=== PATIENT | female | born 1965 | race African-American/Black ===

== ENCOUNTER 2017-02-10 16:08 | Inpatient (IN) | payer OTHER ==
[2017-02-10 18:18] VITALS: BMI 37.3
--- NOTE | 2017-02-10 20:17 | HP ---
CIWA Score - CIWA Score Nausea/Vomitin-Mild Nausea/No Vomiting Muscle Tremors: 5 Anxiety: 4-Mod. Anxious/Guarded Agitation: 4-Moderately Restless Paroxysmal Sweats: 3 Orientation: 2-Disoriented Date<2 days Tacttile Disturbances: 2-Mild Itch/Numbness/Burn Auditory Disturbances: 0-None Visual Disturbances: 0-None Headache: 0-None Present CIWA-Ar Total Score: 21 Admission ROS BHS - HPI Chief Complaint: C/O ALCOHOLISM WITH WITHDRAWAL SX'S. SEEKING DETOX TXMENT Allergies/Adverse Reactions: Allergies Allergy/AdvReac Type Severity Reaction Status Date / Time Penicillins Allergy Severe Rash Verified 02/10/17 20:30 History of Present Illness: 51 Y.O. MALE WITH ALCOHOLISM KNOWN TO [facility] ADMITTED FOR DETOX TXMENT. CLIENT LAST HERE 07/14. DENIES RECENT DETOX/REHAB SERVICES. REPORTS LONGEST CLEAN TIME 5 YEARS. SELF REFERRED. Exam Limitations: No Limitations - Ebola screening Have you traveled outside of the country in the last 21 days: No Have you had contact with anyone from an Ebola affected area: No Have you been sick,other than usual withdrawal symptoms: No Do you have a fever: No - Review of Systems Constitutional: Chills, Loss of Appetite, Malaise, Night Sweats, Changes in sleep EENT: reports: Dental Problems (MISSING BOTTOM TEETH), Other (GLASSES) Respiratory: reports: Shortness of Breath, Other (ASTHMA H/O +PPD) Cardiac: reports: No Symptoms Reported GI: reports: Constipated, Abdominal cramping : reports: No Symptoms Reported Musculoskeletal: reports: Back Pain Integumentary: reports: No Symptoms Reported Neuro: reports: No Symptoms reported Endocrine: reports: No Symptoms Reported Hematology: reports: No Symptoms Reported Psychiatric: reports: Anxious Other Systems: Reviewed and Negative Patient History - Patient Medical History Hx Anemia: No Hx Asthma: Yes Hx Chronic Obstructive Pulmonary Disease (COPD): No Hx Cancer: No Hx Cardiac Disorders: No Hx Congestive Heart Failure: No Hx Hypertension: No Hx Hypercholesterolemia: No Hx Pacemaker: No HX Cerebrovascular Accident: No Hx Seizures: No Hx Dementia: No Hx Diabetes: No Hx Gastrointestinal Disorders: No Hx Liver Disease: No Hx Genitourinary Disorders: No Hx Sexually Transmitted Disorders: No Hx Renal Disease (ESRD): No Hx Thyroid Disease: No Hx Human Immunodeficiency Virus (HIV): No Hx Hepatitis C: No Hx Depression: No Hx Suicide Attempt: Yes (2003 cutting wrist) Hx Bipolar Disorder: No Hx Schizophrenia: Yes (Paranoid) Other Medical History: PTSD, H/O +PPD - Patient Surgical History Past Surgical History: No Hx Neurologic Surgery: No Hx Cataract Extraction: No Hx Cardiac Surgery: No Hx Lung Surgery: No Hx Breast Surgery: No Hx Breast Biopsy: No Hx Abdominal Surgery: No Hx Appendectomy: No Hx Cholecystectomy: No Hx Genitourinary Surgery: No Hx Section: No Hx Orthopedic Surgery: No Hx Hysterectomy: No Anesthesia Reaction: No - PPD History Previous Implant?: Yes Documented Results: Negative w/o proof Implanted On Prior [facility] Admission?: No Date: 07/04/16 (CXR 07/14 NEG) Results: >15 MMM PPD to be Administered?: No - Reproductive History Patient is a Female of Child Bearing Age (11 -55 yrs old): Yes Last Menstrual Period: 02/08/17 Patient : No - Smoking Cessation Smoking history: Current every day smoker Have you smoked in the past 12 months: Yes Aproximately how many cigarettes per day: 20 Cigars Per Day: 0 Hx Chewing Tobacco Use: No Initiated information on smoking cessation: Yes 'Breaking Loose' booklet given: 02/10/17 - Substance & Tx. History Hx Alcohol Use: Yes Hx Substance Use: Yes Substance Use Type: Cocaine Hx Substance Use Treatment: Yes ([facility]) - Substances Abused BARCADI Route: Oral Frequency: Daily Amount used: 2 PINTS Age of first use: 21 Date of Last Use: 02/10/17 COCAINE Route: Smoking Frequency: Daily Amount used: $40 Age of first use: 21 Date of Last Use: 02/09/17 Family Disease History - Family Disease History Family Disease History: Other: Father (ALCOHOLISM ), Mother (RECOVERING COCAINE DEPENDNECE) Admission Physical Exam BHS - Vital Signs Vital Signs: Vital Signs - 24 hr 02/10/17 18:15 Temperature 98.4 F Pulse Rate 106 H Respiratory 18 Rate Blood Pressure 147/79 - Physical General Appearance: Yes: Appropriately Dressed, Tremorous, Anxious HEENTM: Yes: EOMI, Normocephalic, Normal Voice, RADHA, Pharynx Normal, Other ( EDENTULOUS BOTTOMS) Respiratory: Yes: Chest Non-Tender, Lungs Clear, Normal Breath Sounds, No Respiratory Distress, No Accessory Muscle Use Neck: Yes: No masses,lesions,Nodules, Supple, Trachea in good position Breast: Yes: Breast Exam Deferred Cardiology: Yes: Regular Rhythm, Regular Rate, S1, S2 Abdominal: Yes: Normal Bowel Sounds, Non Tender, Soft, Other (OBESE) Genitourinary: Yes: Within Normal Limits Back: Yes: Normal Inspection Musculoskeletal: Yes: full range of Motion, Gait Steady Extremities: Yes: Normal Capillary Refill, Normal Range of Motion, Non-Tender, Tremors Neurological: Yes: Alert, Motor Strength 5/5, Other (FORGETFUL) Integumentary: Yes: Normal Color, Warm Lymphatic: Yes: Within Normal Limits - Diagnostic (1) COPD (chronic obstructive pulmonary disease) Current Visit: Yes Status: Chronic Qualifiers: COPD type: unspecified COPD Qualified Code(s): J44.9 - Chronic obstructive pulmonary disease, unspecified (2) Nicotine dependence Current Visit: Yes Status: Chronic Qualifiers: Nicotine product type: cigarettes Substance use status: uncomplicated Qualified Code(s): F17.210 - Nicotine dependence, cigarettes, uncomplicated (3) Alcohol dependence with uncomplicated withdrawal Current Visit: Yes Status: Acute (4) GERD (gastroesophageal reflux disease) Current Visit: No Status: Chronic Qualifiers: Cleared for Admission [facility] - Detox or Rehab [facility] Level of Care: Medically Managed Detox Regimen/Protocol: Librium [facility] Breath Alcohol Content Breath Alcohol Content: 0.161 Urine Pregancy Test - Result Urine Test Results: Negative- NO Line Present Urine Drug Screen - Results Drug Screen Negative: Yes
[2017-02-10] MEDS ORDERED: chlordiazePOXIDE HCL 25 MG CAPSULE PO PRN (20:49)
[2017-02-10] MEDS ORDERED: ACETAMINOPHEN 325 MG TABLET (FP) PO PRN (20:49)
[2017-02-10] MEDS ORDERED: MENTHOL/PHENOL 1 EACH UD MM PRN (20:49)
[2017-02-10] MEDS ORDERED: LOPERAMIDE HCL 2 MG CAPSULE PO PRN (20:49)
[2017-02-10] MEDS ORDERED: MAG HYDROX/AL HYDROX/SIMETH 30 ML UNIT-DOSE CUP PO PRN (20:49)
[2017-02-10] MEDS ORDERED: diphenhydrAMINE HCL 50 MG CAPSULE PO PRN (20:49)
[2017-02-10] MEDS ORDERED: P-EPHED 60MG/TRIPROLIDI 2.5MG TABLET PO PRN (20:49)
[2017-02-10] MEDS ORDERED: hydrOXYzine PAMOATE 50 MG CAPSULE (FP) PO PRN (20:49)
[2017-02-10] MEDS ORDERED: MAGNESIUM CITRATE 300 ML BOTTLE PO PRN (20:49)
[2017-02-10] MEDS ORDERED: guaiFENesin/D-METHORPHAN HB 10 ML UNIT-DOSE CUPS PO PRN (20:49)
[2017-02-10] MEDS ORDERED: IBUPROFEN 400 MG TABLET (FP) PO PRN (20:49)
[2017-02-10] MEDS ORDERED: MAGNESIUM HYDROX 2400MG/30ML ORAL SUSPENSION 30 ML CUP PO PRN (20:49)
[2017-02-10] MEDS ORDERED: ALBUTEROL SO4 6.7 GM HFA INHALER IH PRN (20:52)
[2017-02-10] MEDS: THIAMINE HCL 100 MG TABLET (FP) PO SCH (22:13)
[2017-02-10] MEDS: BUDESONIDE/FORMETEROL FUMARATE 80/4.5 mcg INHALER IH SCH (22:13)
[2017-02-10] MEDS: RANITIDINE HCL 150 MG TABLET (FP) PO SCH (22:14)
[2017-02-10] MEDS: chlordiazePOXIDE HCL 25 MG CAPSULE PO SCH (22:14)
[2017-02-10] MEDS: MONTELUKAST NA 10 MG TABLET PO SCH (22:14)
[2017-02-10] MEDS: NICOTINE 21 MG/24 HOURS TOPICAL PATCH TD SCH (23:24)
[2017-02-11 00:11] LABS: URINE APPEARANCE CLEAR; URINE BILIRUBIN NEGATIVE (NEGATIVE); URINE COLOR LTYELLOW; URINE GLUCOSE (UA) NEGATIVE (NEGATIVE); URINE KETONE NEGATIVE (NEGATIVE); URINE LEUK ESTERASE NEGATIVE (NEGATIVE); URINE NITRITE NEGATIVE (NEGATIVE); URINE PROTEIN NEGATIVE (NEGATIVE); URINE UROBILINOGEN NEGATIVE E.U./dl (0.2-1.0)
[2017-02-11 00:17] LABS: URINE BLOOD 2+ (NEGATIVE)
[2017-02-11 00:44] LABS: URINE MUCUS RARE; URINE RBC <1 /hpf (0-3); URINE WBC 1 /hpf (3-5)
[2017-02-11] MEDS: chlordiazePOXIDE HCL 25 MG CAPSULE PO SCH ×4 (07:35→22:24)
[2017-02-11] MEDS ORDERED: PRENATAL VITAMINS W/ FOLIC ACID TABLET (FP) PO SCH (10:00)
[2017-02-11] MEDS: RANITIDINE HCL 150 MG TABLET (FP) PO SCH ×2 (10:15→22:24)
[2017-02-11] MEDS: BUDESONIDE/FORMETEROL FUMARATE 80/4.5 mcg INHALER IH SCH ×2 (10:15→22:23)
[2017-02-11] MEDS: NICOTINE 21 MG/24 HOURS TOPICAL PATCH TD SCH (10:20)
[2017-02-11 10:26] LABS: MCH 31.1 pg (25.7-33.7); MCHC 34.1 g/dl (32.0-36.0); MEAN CELL VOLUME 91.1 fl (80-96); MEAN PLT VOLUME 8.9 fl (7.5-11.1); PLATELET COUNT 271 K/MM3 (134-434); RDW 14.5 % (11.6-15.6); WHITE BLOOD COUNT 8.4 K/mm3 (4.0-10.0)
--- NOTE | 2017-02-11 10:34 | PN ---
S CIWA - CIWA Score Nausea/Vomitin-No Nausea/No Vomiting Muscle Tremors: 4-Moderate,w/Arms Extend Anxiety: 3 Agitation: 3 Paroxysmal Sweats: 3 Orientation: 0-Oriented Tacttile Disturbances: 0-None Auditory Disturbances: 0-None Visual Disturbances: 0-None Headache: 0-None Present CIWA-Ar Total Score: 13 S Progress Note (SOAP) Subjective: irritable agitation sweats interrupted sleep Objective: 02/11/17 10:33 Vital Signs Temperature 97.3 F L 02/11/17 09:51 Pulse Rate 91 H 02/11/17 09:51 Respiratory Rate 20 02/11/17 09:51 Blood Pressure 127/82 02/11/17 09:51 O2 Sat by Pulse Oximetry (%) Laboratory Tests 02/10/17 02/11/17 00:00 07:00 WBC 8.4 RBC 3.95 Hgb 12.3 Hct 36.0 MCV 91.1 MCHC 34.1 RDW 14.5 Plt Count 271 MPV 8.9 Urine Color Ltyellow Urine Appearance Clear Urine pH 7.0 Urine Protein Negative Urine Glucose (UA) Negative Urine Ketones Negative Urine Blood 2+ H Urine Nitrite Negative Urine Bilirubin Negative Urine Urobilinogen Negative Ur Leukocyte Esterase Negative Urine RBC <1 Urine WBC 1 Ur Epithelial Cells Rare Urine Mucus Rare labs pending awake/alert ambulating no acute distress Assessment: 02/11/17 10:34 withdrawal sx Plan: continue detox increase fluids
[2017-02-11 10:54] LABS: ALBUMIN 3.1 g/dl (3.4-5.0); ANION GAP 9 (8-16); CALCIUM 8.6 mg/dL (8.5-10.1); CO2 25 mmol/L (21-32); GLUCOSE,RANDOM 110 mg/dL (74-106); SGOT/AST 11 U/L (15-37); SGPT/ALT 17 U/L (12-78)
[2017-02-11 11:02] LABS: ALK PHOS 78 U/L (45-117); BILIRUBIN,TOTAL 0.3 mg/dL (0.2-1.0); COCKROFT - GAULT 163.2425; CREATININE 0.8 mg/dL (0.55-1.02); TOT PROT 6.8 g/dl (6.4-8.2)
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
--- NOTE | 2017-02-11 17:20 | EKG ---
Test Reason : Blood Pressure : / mmHG Vent. Rate : 097 BPM Atrial Rate : 097 BPM P-R Int : 154 ms QRS Dur : 068 ms QT Int : 374 ms P-R-T Axes : 074 060 060 degrees QTc Int : 474 ms NORMAL SINUS RHYTHM NORMAL ECG NO PREVIOUS ECGS AVAILABLE Confirmed by ASHA DENTON, CLARENCE ([id number]) on 02/11/2017 5:20:28 PM Referred By: Juwan Mcknight Confirmed By:CLARENCE BARRY MD
[2017-02-11] MEDS ORDERED: QUEtiapine FUMARATE 400 MG TABLET PO SCH (22:00)
[2017-02-11] MEDS: THIAMINE HCL 100 MG TABLET (FP) PO SCH (22:24)
[2017-02-11] MEDS: MONTELUKAST NA 10 MG TABLET PO SCH (22:24)
[2017-02-12] MEDS: chlordiazePOXIDE HCL 25 MG CAPSULE PO SCH (05:56)
[2017-02-12 06:22] VITALS: BP 122/69; PULSE 100; TEMP 97
--- NOTE | 2017-02-12 09:12 | DS ---
[facility] Detox Discharge Summary Admission Date: 02/10/17 Discharge Date: 02/12/17 - History Present History: Alcohol Dependence, Cocaine Dependence - Physical Exam Results Vital Signs: Vital Signs Temperature 97 F L 02/12/17 06:22 Pulse Rate 100 H 02/12/17 06:22 Respiratory Rate 18 02/12/17 06:22 Blood Pressure 122/69 02/12/17 06:22 O2 Sat by Pulse Oximetry (%) - Treatment Hospital Course: Detox Protocol Followed - Medication Discharge Medications: Ambulatory Orders Citalopram Hydrobromide [Celexa -] 20 mg PO DAILY #30 tablet 07/05/16 Quetiapine Fumarate [Seroquel] 100 tab PO HS #30 tablet 07/05/16 Methyl Salicylate/Menthol Oint [Analgesic [place] -] 1 applic TP BID 07/06/16 Albuterol Sulfate Inhaler - [Ventolin HFA Inhaler -] 2 inh IH Q4H PRN #60 inhaler 07/16/16 Budesonide/Formeterol Fumarate [SYMBICORT 80/4.5mcg -] 2 puff IH BID #1 inhaler 07/16/16 Montelukast Na [Singulair -] 10 mg PO HS #30 tablet 07/16/16 Ranitidine [Zantac -] 150 mg PO BID #60 tablet 07/16/16 Trazodone HCl [Desyrel -] 100 mg PO HS #30 tablet 07/16/16 Citalopram Hydrobromide [Celexa -] 10 mg PO DAILY #30 tablet 02/11/17 Quetiapine Fumarate [Seroquel -] 400 mg PO HS #30 tab 02/11/17 - Diagnosis (1) Alcohol dependence with uncomplicated withdrawal Current Visit: Yes Status: Chronic (2) PPD positive Current Visit: Yes Status: Chronic (3) Paranoid schizophrenia Current Visit: Yes Status: Chronic (4) COPD (chronic obstructive pulmonary disease) Current Visit: Yes Status: Chronic Qualifiers: COPD type: unspecified COPD Qualified Code(s): J44.9 - Chronic obstructive pulmonary disease, unspecified (5) Asthma Current Visit: Yes Status: Chronic Qualifiers: Asthma severity: mild intermittent Qualified Code(s): - (6) Bipolar II disorder Current Visit: Yes Status: Chronic (7) Cocaine dependence Current Visit: Yes Status: Chronic Qualifiers: Substance use status: uncomplicated (8) Dust allergy Current Visit: No Status: Chronic (9) GERD (gastroesophageal reflux disease) Current Visit: No Status: Chronic Qualifiers: - AMA Did Patient Leave Against Medical Advice: Yes (wants to leave. going to another facility. )
[2017-02-12] MEDS ORDERED: CITALOPRAM HYDROBROMIDE 10 MG TABLET (FP) PO SCH (10:00)
[2017-02-12] MEDS ORDERED: chlordiazePOXIDE 5 MG CAPSULE PO SCH (23:00)
[2017-02-13] MEDS ORDERED: chlordiazePOXIDE HCL 10 MG CAPSULE PO SCH (23:00)
== END 2017-02-12 09:28 | disposition left against medical advice (07) | DRG 770 ==
LOC: YASAS 16:08 → Y6N 20:23
PROVIDERS: ADMIT Internal Medicine Addiction Medicine; ATTEND Internal Medicine Addiction Medicine
PROC: HZ2ZZZZ Detoxification Services for Substance Abuse Treatment (ICD-10-PCS; principal; 2017-02-12)
DX: F10.230 Alcohol dependence with withdrawal, uncomplicated (principal); F14.20 Cocaine dependence, uncomplicated; F17.210 Nicotine dependence, cigarettes, uncomplicated; F31.81 Bipolar II disorder; F25.9 Schizoaffective disorder, unspecified; F43.10 Post-traumatic stress disorder, unspecified; J44.9 Chronic obstructive pulmonary disease, unspecified; J45.20 Mild intermittent asthma, uncomplicated; K21.9 Gastro-esophageal reflux disease without esophagitis; J30.89 Other allergic rhinitis; R76.11 Nonspecific reaction to tuberculin skin test without active tuberculosis
CPT/HCPCS: 36415; 80053; 81003; 81015; 85027; 86593; 93005; 93010

== ENCOUNTER 2019-01-01 11:08 | Inpatient (IN) | payer OTHER ==
[2019-01-01 12:48] VITALS: BMI 41.0
--- NOTE | 2019-01-01 13:14 | HP ---
CIWA Score Nausea/Vomitin-Mild Nausea/No Vomiting Muscle Tremors: None Anxiety: 2 Agitation: 0-Normal Activity Paroxysmal Sweats: No Perspiration Orientation: 0-Oriented Tacttile Disturbances: 0-None Auditory Disturbances: 0-None Visual Disturbances: 0-None Headache: 0-None Present CIWA-Ar Total Score: 3 - Admission Criteria OASAS Guidelines: Admission for Medically Managed Detox: Requires at least one of the followin. CIWA greater than 12 2. Seizures within the past 24 hours 3. Delirium tremens within the past 24 hours 4. Hallucinations within the past 24 hours 5. Acute intervention needed for co occurring medical disorder 6. Acute intervention needed for co occurring psychiatric disorder 7. Severe withdrawal that cannot be handled at a lower level of care (continued vomiting, continued diarrhea, abnormal vital signs) requiring intravenous medication and/or fluids 8. Admission ROS S - HPI Allergies/Adverse Reactions: Allergies Allergy/AdvReac Type Severity Reaction Status Date / Time Penicillins Allergy Severe Rash Verified 01/01/19 12:38 History of Present Illness: pt her erequesting detox from etoh use , reports use x 2 weeks heavily 2 quarts /day , prior sobriety x 1 year , first age of use 21 , latest use Friday night 12/27/18 , current symptoms as above. latest hospitalization - last 2 days at [facility] for asthma exacerbation , d/c today cocaine : 200 $/day 2 x/day denies IVDU , reports cocaine since age 21 , latest use yesterday denies other illicits tobacco : 1/2 ppd PMHX : asthma ( hospitalized , [place] ) , MACK , gerd PShx : c-sx x 1 psych : ptsd , depression , paranoid sad , anxiety denies SA , current / Hi meds : celexa, trazodone, symbicort , albuterol Exam Limitations: No Limitations - Ebola screening Have you traveled outside of the country in the last 21 days: No Have you had contact with anyone from an Ebola affected area: No - Review of Systems Constitutional: No Symptoms Reported (glasses myopia , awaiting dentures) EENT: reports: No Symptoms Reported Respiratory: reports: Cough, Shortness of Breath, Other (pt d/c from hospital reportedly after overnight stay and IV meds .) Cardiac: reports: No Symptoms Reported GI: reports: No Symptoms Reported : reports: No Symptoms Reported Musculoskeletal: reports: Muscle Pain Integumentary: reports: No Symptoms Reported Neuro: reports: No Symptoms reported Endocrine: reports: No Symptoms Reported Psychiatric: reports: Orientated x3 Patient History - Patient Medical History Hx Anemia: No Hx Asthma: Yes Hx Chronic Obstructive Pulmonary Disease (COPD): No Hx Cancer: No Hx Cardiac Disorders: No Hx Congestive Heart Failure: No Hx Hypertension: No Hx Hypercholesterolemia: No Hx Pacemaker: No HX Cerebrovascular Accident: No Hx Seizures: No Hx Dementia: No Hx Diabetes: No Hx Gastrointestinal Disorders: No Hx Liver Disease: No Hx Genitourinary Disorders: No Hx Sexually Transmitted Disorders: No Hx Renal Disease (ESRD): No Hx Thyroid Disease: No Hx Human Immunodeficiency Virus (HIV): No Hx Hepatitis C: No Hx Depression: No Hx Suicide Attempt: Yes (2003 cutting wrist) Hx Bipolar Disorder: No Hx Schizophrenia: Yes (Paranoid) - Patient Surgical History Past Surgical History: No Hx Neurologic Surgery: No Hx Cataract Extraction: No Hx Cardiac Surgery: No Hx Lung Surgery: No Hx Breast Surgery: No Hx Breast Biopsy: No Hx Abdominal Surgery: No Hx Appendectomy: No Hx Cholecystectomy: No Hx Genitourinary Surgery: No Hx Section: No Hx Orthopedic Surgery: No Hx Hysterectomy: No Anesthesia Reaction: No - PPD History Date: 07/04/16 Results: >15 MMM - Reproductive History Last Menstrual Period: 02/08/17 - Smoking Cessation Smoking history: Current every day smoker Have you smoked in the past 12 months: Yes Aproximately how many cigarettes per day: 20 Cigars Per Day: 0 Hx Chewing Tobacco Use: No Initiated information on smoking cessation: No - Substances abused Alcohol Substance route: Oral Frequency: Daily Amount used: 2 /FIFTH VODKA Age of first use: 21 Date of last use: 12/28/18 Cocaine Substance route: Smoking Frequency: 3-6 times per week Amount used: $400 Age of first use: Date of last use: 12/31/18 Family Disease History - Family Disease History Family Disease History: Other: Father (ALCOHOLISM ), Mother (RECOVERING COCAINE DEPENDNECE) Admission Physical Exam BHS - Vital Signs Vital Signs: Vital Signs - 24 hr 01/01/19 01/01/19 12:38 12:56 Temperature 98 F 98.0 F Pulse Rate 115 H 115 H Respiratory 22 H 22 H Rate Blood Pressure 165/100 165/100 - Physical General Appearance: Yes: Mild Distress HEENTM: Yes: EOMI, Hearing grossly Normal, Normocephalic, Normal Voice Respiratory: Yes: Chest Non-Tender, Decreased Breath Sounds, Rapid RR, Wheezing Neck: Yes: No masses,lesions,Nodules, Trachea in good position Cardiology: Yes: Regular Rhythm, Regular Rate, S1, S2, Tachycardia Abdominal: Yes: Soft, Protuberent Back: Yes: Normal Inspection Musculoskeletal: Yes: full range of Motion Extremities: Yes: Normal Range of Motion, Non-Tender Neurological: Yes: Fully Oriented, Alert, Motor Strength 5/5 - Diagnostic (1) Alcohol dependence Current Visit: Yes Status: Acute Qualifiers: Substance use status: in remission Qualified Code(s): F10.21 - Alcohol dependence, in remission (2) Cocaine dependence Current Visit: Yes Status: Acute Qualifiers: Substance use status: uncomplicated Qualified Code(s): F14.20 - Cocaine dependence, uncomplicated (3) Nicotine dependence Current Visit: Yes Status: Chronic Qualifiers: Nicotine product type: cigarettes Substance use status: uncomplicated Qualified Code(s): F17.210 - Nicotine dependence, cigarettes, uncomplicated Breathalyzer - Breathalyzer Breathalyzer: 0 POC Urine test - Test device test lot number: [id number] Expiration date: 05/29/20 - Control test control: Yes - Result Urine Test Results: Negative - NO line present Urine Drug Screen - Test Device Lot number: [id number] Expiration date: 08/28/20 - Control Is test valid?: Yes - Results Drug screen NEGATIVE: No Urine drug screen results: BRODERICK-Cocaine, BZO-Benzodiazepines Inpatient Rehab Admission - Rehab Decision to Admit Inpatient rehab admission?: Yes - Initial Determination Are CD services needed?: Yes Free of communicable disease: Yes Not in need of hospitalization: Yes - Rehab Admission Criteria Previous failed treatment: No Poor recovery environment: No Comorbidities: No Lacks judgement: Yes Patient is meeting Inpatient Rehab admission criteria:: Yes
[2019-01-01] MEDS ORDERED: P-EPHED 60MG/TRIPROLIDI 2.5MG TABLET PO PRN (13:54)
[2019-01-01] MEDS ORDERED: MAGNESIUM HYDROX 2400MG/30ML ORAL SUSPENSION 30 ML CUP PO PRN (13:54)
[2019-01-01] MEDS ORDERED: ACETAMINOPHEN 325 MG TABLET (FP) PO PRN (13:54)
[2019-01-01] MEDS ORDERED: MENTHOL/PHENOL 1 EACH UD MM PRN (13:54)
[2019-01-01] MEDS ORDERED: NICOTINE POLACRILEX 2 MG GUM BC PRN (13:54)
[2019-01-01] MEDS ORDERED: MAGNESIUM CITRATE 300 ML BOTTLE PO PRN (13:54)
[2019-01-01] MEDS ORDERED: guaiFENesin 200 MG/10 ML 10 ML UNIT-DOSE CUPS PO PRN (13:54)
[2019-01-01] MEDS ORDERED: IBUPROFEN 400 MG TABLET (FP) PO PRN (13:54)
[2019-01-01] MEDS ORDERED: ALBUTEROL SO4 0.083% IH SOL 2.5 MG/3 ML VIAL.NEB. NEB PRN (13:55)
[2019-01-01] MEDS ORDERED: ALBUTEROL SO4 8 GM HFA INHALER IH PRN (13:55)
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
[2019-01-01 16:57] LABS: HEMOGLOBIN 12.4 GM/dL (10.7-15.3); MCH 30.5 pg (25.7-33.7); MCHC 33.5 g/dl (32.0-36.0); MEAN PLT VOLUME 9.5 fl (7.5-11.1); PLATELET COUNT 321 K/MM3 (134-434); RBC 4.07 M/mm3 (3.60-5.2); RDW 14.7 % (11.6-15.6); WHITE BLOOD COUNT 12.4 K/mm3 (4.0-10.0)
[2019-01-01 17:05] LABS: ALBUMIN 3.5 g/dl (3.4-5.0); ALK PHOS 90 U/L (45-117); ANION GAP 4 MMOL/L (8-16); BILIRUBIN,TOTAL 0.4 mg/dL (0.2-1); BLOOD UREA NITROGEN 11 mg/dL (7-18); CALCIUM 9.8 mg/dL (8.5-10.1); CHLORIDE 107 mmol/L (98-107); CO2 27 mmol/L (21-32); GLUCOSE,RANDOM 139 mg/dL (74-106); POTASSIUM 4.8 mmol/L (3.5-5.1); SGOT/AST 14 U/L (15-37); SGPT/ALT 22 U/L (13-61); SODIUM 138 mmol/L (136-145); TOT PROT 8.1 g/dl (6.4-8.2)
[2019-01-01] MEDS ORDERED: hydrOXYzine PAMOATE 50 MG CAPSULE (FP) PO PRN (18:18)
[2019-01-01] MEDS ORDERED: TUBERCULIN PPD 5 TU/0.1ML VIAL ID ONE (19:50)
[2019-01-01] MEDS: BUDESONIDE/FORMETEROL FUMARATE 80/4.5 mcg INHALER IH SCH (21:03)
[2019-01-01] MEDS: THIAMINE HCL 100 MG TABLET (FP) PO SCH (21:03)
[2019-01-01] MEDS: MONTELUKAST NA 10 MG TABLET PO SCH (21:04)
[2019-01-01] MEDS: QUEtiapine FUMARATE 50 MG TABLET PO SCH (21:04)
[2019-01-01] MEDS: TOPIRAMATE 25 MG TABLET (FP) PO SCH (21:04)
[2019-01-01] MEDS: RANITIDINE HCL 150 MG TABLET (FP) PO SCH (21:04)
[2019-01-01] MEDS ORDERED: traZODone HCL 100 MG TABLET (FP) PO SCH (22:00)
[2019-01-01 23:45] LABS: EPI CELLS 9.6 /HPF (0-5); PH,URINE 6.5 (5.0-8.0); URINE APPEARANCE CLEAR; URINE BILIRUBIN NEGATIVE (NEGATIVE); URINE CASTS 3 /hpf (0-8); URINE COLOR YELLOW; URINE GLUCOSE (UA) NEGATIVE (NEGATIVE); URINE KETONE TRACE (NEGATIVE); URINE LEUK ESTERASE NEGATIVE (NEGATIVE); URINE NITRITE NEGATIVE (NEGATIVE); URINE PROTEIN 2+ (NEGATIVE); URINE RBC 2 /hpf (0-4); URINE UROBILINOGEN 0.2 mg/dL (0.2-1.0); URINE WBC 8 /hpf (0-5)
[2019-01-02] MEDS: CITALOPRAM HYDROBROMIDE 20 MG TABLET (FP) PO SCH (09:37)
[2019-01-02] MEDS: ARIPiprazole 10 MG TABLET PO SCH (09:38)
[2019-01-02] MEDS: PRENATAL VITAMINS W/ FOLIC ACID TABLET (FP) PO SCH (09:38)
[2019-01-02] MEDS: BUDESONIDE/FORMETEROL FUMARATE 80/4.5 mcg INHALER IH SCH ×2 (09:38→21:28)
[2019-01-02] MEDS: TOPIRAMATE 25 MG TABLET (FP) PO SCH ×2 (09:38→21:29)
[2019-01-02] MEDS: RANITIDINE HCL 150 MG TABLET (FP) PO SCH ×2 (09:38→21:29)
[2019-01-02] MEDS: NICOTINE 14 MG/24 HOURS TOPICAL PATCH TD SCH (11:07)
[2019-01-02] MEDS: THIAMINE HCL 100 MG TABLET (FP) PO SCH (21:28)
[2019-01-02] MEDS: MONTELUKAST NA 10 MG TABLET PO SCH (21:29)
[2019-01-02] MEDS: MELATONIN 5 MG TABLETS PO PRN (21:29)
[2019-01-02] MEDS: QUEtiapine FUMARATE 50 MG TABLET PO SCH (21:29)
[2019-01-03] MEDS: PRENATAL VITAMINS W/ FOLIC ACID TABLET (FP) PO SCH (09:54)
[2019-01-03] MEDS: TOPIRAMATE 25 MG TABLET (FP) PO SCH ×2 (09:54→21:20)
[2019-01-03] MEDS: RANITIDINE HCL 150 MG TABLET (FP) PO SCH ×2 (09:54→21:19)
[2019-01-03] MEDS: BUDESONIDE/FORMETEROL FUMARATE 80/4.5 mcg INHALER IH SCH ×2 (09:54→21:19)
[2019-01-03] MEDS: ARIPiprazole 10 MG TABLET PO SCH (09:54)
[2019-01-03] MEDS: CITALOPRAM HYDROBROMIDE 20 MG TABLET (FP) PO SCH (09:54)
[2019-01-03] MEDS: NICOTINE 14 MG/24 HOURS TOPICAL PATCH TD SCH (09:54)
[2019-01-03] MEDS: MONTELUKAST NA 10 MG TABLET PO SCH (21:19)
[2019-01-03] MEDS: THIAMINE HCL 100 MG TABLET (FP) PO SCH (21:19)
[2019-01-03] MEDS: QUEtiapine FUMARATE 50 MG TABLET PO SCH (21:19)
[2019-01-03] MEDS: MELATONIN 5 MG TABLETS PO PRN (21:20)
[2019-01-04] MEDS: PRENATAL VITAMINS W/ FOLIC ACID TABLET (FP) PO SCH (09:54)
[2019-01-04] MEDS: CITALOPRAM HYDROBROMIDE 20 MG TABLET (FP) PO SCH (09:54)
[2019-01-04] MEDS: BUDESONIDE/FORMETEROL FUMARATE 80/4.5 mcg INHALER IH SCH ×2 (09:54→21:08)
[2019-01-04] MEDS: NICOTINE 14 MG/24 HOURS TOPICAL PATCH TD SCH (09:54)
[2019-01-04] MEDS: RANITIDINE HCL 150 MG TABLET (FP) PO SCH ×2 (09:54→21:10)
[2019-01-04] MEDS: TOPIRAMATE 25 MG TABLET (FP) PO SCH ×2 (09:54→21:10)
[2019-01-04] MEDS: ARIPiprazole 10 MG TABLET PO SCH (09:54)
[2019-01-04] MEDS: MONTELUKAST NA 10 MG TABLET PO SCH (21:10)
[2019-01-04] MEDS: MELATONIN 5 MG TABLETS PO PRN (21:10)
[2019-01-04] MEDS: MAG HYDROX/AL HYDROX/SIMETH 30 ML UNIT-DOSE CUP PO PRN (21:10)
[2019-01-04] MEDS: QUEtiapine FUMARATE 50 MG TABLET PO SCH (21:10)
[2019-01-04] MEDS: THIAMINE HCL 100 MG TABLET (FP) PO SCH (21:10)
[2019-01-05] MEDS: PRENATAL VITAMINS W/ FOLIC ACID TABLET (FP) PO SCH (10:38)
[2019-01-05] MEDS: TOPIRAMATE 25 MG TABLET (FP) PO SCH ×2 (10:38→21:01)
[2019-01-05] MEDS: BUDESONIDE/FORMETEROL FUMARATE 80/4.5 mcg INHALER IH SCH ×2 (10:38→21:02)
[2019-01-05] MEDS: CITALOPRAM HYDROBROMIDE 20 MG TABLET (FP) PO SCH (10:38)
[2019-01-05] MEDS: RANITIDINE HCL 150 MG TABLET (FP) PO SCH ×2 (10:38→21:01)
[2019-01-05] MEDS: NICOTINE 14 MG/24 HOURS TOPICAL PATCH TD SCH (10:38)
[2019-01-05] MEDS: ARIPiprazole 10 MG TABLET PO SCH (10:38)
[2019-01-05] MEDS: MELATONIN 5 MG TABLETS PO PRN (21:00)
[2019-01-05] MEDS: THIAMINE HCL 100 MG TABLET (FP) PO SCH (21:00)
[2019-01-05] MEDS: MONTELUKAST NA 10 MG TABLET PO SCH (21:01)
[2019-01-05] MEDS: QUEtiapine FUMARATE 50 MG TABLET PO SCH (21:01)
[2019-01-05] MEDS: MAG HYDROX/AL HYDROX/SIMETH 30 ML UNIT-DOSE CUP PO PRN (21:02)
--- NOTE | 2019-01-06 08:31 | PN ---
[facility] Progress Note Note: Labs reviewed; no significant abnormalities.
[2019-01-06] MEDS: TOPIRAMATE 25 MG TABLET (FP) PO SCH ×2 (10:12→21:28)
[2019-01-06] MEDS: NICOTINE 14 MG/24 HOURS TOPICAL PATCH TD SCH (10:12)
[2019-01-06] MEDS: ARIPiprazole 10 MG TABLET PO SCH (10:12)
[2019-01-06] MEDS: PRENATAL VITAMINS W/ FOLIC ACID TABLET (FP) PO SCH (10:12)
[2019-01-06] MEDS: CITALOPRAM HYDROBROMIDE 20 MG TABLET (FP) PO SCH (10:12)
[2019-01-06] MEDS: RANITIDINE HCL 150 MG TABLET (FP) PO SCH ×2 (10:12→21:28)
[2019-01-06] MEDS: BUDESONIDE/FORMETEROL FUMARATE 80/4.5 mcg INHALER IH SCH ×2 (10:12→21:50)
[2019-01-06] MEDS: THIAMINE HCL 100 MG TABLET (FP) PO SCH (21:28)
[2019-01-06] MEDS: MELATONIN 5 MG TABLETS PO PRN (21:28)
[2019-01-06] MEDS: MONTELUKAST NA 10 MG TABLET PO SCH (21:28)
[2019-01-06] MEDS: QUEtiapine FUMARATE 50 MG TABLET PO SCH (21:28)
[2019-01-06] MEDS: MAG HYDROX/AL HYDROX/SIMETH 30 ML UNIT-DOSE CUP PO PRN (21:29)
[2019-01-07] MEDS: ARIPiprazole 10 MG TABLET PO SCH (11:09)
[2019-01-07] MEDS: CITALOPRAM HYDROBROMIDE 20 MG TABLET (FP) PO SCH (11:09)
[2019-01-07] MEDS: NICOTINE 14 MG/24 HOURS TOPICAL PATCH TD SCH (11:09)
[2019-01-07] MEDS: BUDESONIDE/FORMETEROL FUMARATE 80/4.5 mcg INHALER IH SCH ×2 (11:10→21:20)
[2019-01-07] MEDS: TOPIRAMATE 25 MG TABLET (FP) PO SCH ×2 (11:15→21:20)
[2019-01-07] MEDS: RANITIDINE HCL 150 MG TABLET (FP) PO SCH ×2 (11:15→21:20)
[2019-01-07] MEDS: PRENATAL VITAMINS W/ FOLIC ACID TABLET (FP) PO SCH (12:10)
[2019-01-07] MEDS: THIAMINE HCL 100 MG TABLET (FP) PO SCH (21:20)
[2019-01-07] MEDS: QUEtiapine FUMARATE 50 MG TABLET PO SCH (21:20)
[2019-01-07] MEDS: MONTELUKAST NA 10 MG TABLET PO SCH (21:20)
[2019-01-07] MEDS: MELATONIN 5 MG TABLETS PO PRN (21:21)
[2019-01-07] MEDS: MAG HYDROX/AL HYDROX/SIMETH 30 ML UNIT-DOSE CUP PO PRN (21:21)
[2019-01-08] MEDS: TOPIRAMATE 25 MG TABLET (FP) PO SCH ×2 (10:09→21:08)
[2019-01-08] MEDS: NICOTINE 14 MG/24 HOURS TOPICAL PATCH TD SCH (10:09)
[2019-01-08] MEDS: CITALOPRAM HYDROBROMIDE 20 MG TABLET (FP) PO SCH (10:09)
[2019-01-08] MEDS: PRENATAL VITAMINS W/ FOLIC ACID TABLET (FP) PO SCH (10:09)
[2019-01-08] MEDS: RANITIDINE HCL 150 MG TABLET (FP) PO SCH ×2 (10:09→21:08)
[2019-01-08] MEDS: ARIPiprazole 10 MG TABLET PO SCH (10:09)
[2019-01-08] MEDS: BUDESONIDE/FORMETEROL FUMARATE 80/4.5 mcg INHALER IH SCH ×2 (10:10→21:07)
--- NOTE | 2019-01-08 14:09 | PN ---
Psychiatric Progress Note Vital Signs: Vital Signs Period Temp Pulse Resp BP Sys/Jimenez Pulse Ox Last 24 Hr 97.8 F 107 18-20 123/72 Date of Session: 01/08/19 Chief Complaint:: " I still can't sleep." HPI: Patient reports difficulty sleeping despite taking seroquel 50mg HS. ROS: Asthma Current Medications: Active Medications Generic Name Dose Route Start Last Admin Trade Name Freq PRN Reason Stop Dose Admin Acetaminophen 650 mg 01/01/19 13:54 Tylenol - PO Q4H PRN FEVER Al Hydroxide/Mg Hydroxide 30 ml 01/01/19 13:54 01/07/19 21:21 Mylanta Oral Suspension - PO 30 ml Q6H PRN Administration DYSPEPSIA Albuterol Sulfate 1 amp 01/01/19 13:55 Ventolin 0.083% Nebulizer Soln - NEB Q4H PRN SHORT OF BREATH/WHEEZING Albuterol Sulfate 2 puff 01/01/19 13:55 Ventolin Hfa Inhaler - IH Q4H PRN ASTHMA Aripiprazole 10 mg 01/02/19 10:00 01/08/19 10:09 Abilify PO 10 mg DAILY DAVID Administration Budesonide/Formoterol Fumarate 2 puff 01/01/19 22:00 01/08/19 10:10 Symbicort 80/4.5mcg - IH Not Given BID DAVID Citalopram Hydrobromide 20 mg 01/02/19 10:00 01/08/19 10:09 Celexa - PO 20 mg DAILY DAVID Administration Eucalyptus/Menthol/Phenol/Sorbitol 1 each 01/01/19 13:54 Cepastat Lozenge - MM Q4H PRN SORE THROAT Guaifenesin 10 ml 01/01/19 13:54 Robitussin - PO Q6H PRN COUGH Hydroxyzine Pamoate 50 mg 01/01/19 18:18 Vistaril - PO Q6H PRN AGITATION Ibuprofen 400 mg 01/01/19 13:54 Motrin - PO Q6H PRN Pain level 4-6 Magnesium Citrate 300 ml 01/01/19 13:54 Citroma - PO Q48H PRN CONSTIPATION Magnesium Hydroxide 30 ml 01/01/19 13:54 Milk Of Magnesia - PO DAILY PRN CONSTIPATION Melatonin 5 mg 01/01/19 22:00 01/07/19 21:21 Melatonin PO 5 mg HS PRN Administration INSOMNIA Montelukast Sodium 10 mg 01/01/19 22:00 01/07/19 21:20 Singulair - PO 10 mg HS DAVID Administration Nicotine 14 mg 01/02/19 10:45 01/08/19 10:09 Nicoderm Patch - TD 14 mg DAILY DAVID Administration Nicotine Polacrilex 2 mg 01/01/19 13:54 01/03/19 14:40 Nicorette Gum - BC 2 mg Q2H PRN Administration NICOTINE REPLACEMENT RX Multivit/Folic Acid/Iron 1 tab 01/02/19 10:00 01/08/19 10:09 Vitamins (Sjr) - PO 1 tab DAILY DAVID Administration Pseudoephedrine/Triprolidine 1 combo 01/01/19 13:54 Actifed - PO TID PRN NASAL CONGESTION Quetiapine Fumarate 50 mg 01/01/19 22:00 01/07/19 21:20 Seroquel - PO 50 mg HS DAVID Administration Ranitidine HCl 150 mg 01/01/19 22:00 01/08/19 10:09 Zantac - PO 150 mg BID DAVID Administration Thiamine HCl 100 mg 01/01/19 22:00 01/07/19 21:20 Vitamin B1 - PO 100 mg HS DAVID Administration Topiramate 25 mg 01/01/19 22:00 01/08/19 10:09 Topamax - PO 25 mg BID DAVID Administration Medication(s) Change(s): Will d/c Seroquel 50mg and order Seroquel 100mg HS. Current Side Effect: No Lab tests ordered: No Lab tests reviewed: Yes Provider note:: Patient reports difficulty sleeping through the night. She is currently prescribed seroquel 50mg + Melatonin 5mg HS for insomnia. Patient reports stable mood and denies psychotic symptoms. Will d/c seroquel 50mg and melatonin 5mg. Patient educated on the importance of sleep hygiene. Will order Seroquel 100mg + Melatonin 10mg HS prn. Benefits and side effects discussed. Verbal consent given. Total face to face time:: 25 Mental Status Exam - Mental Status Exam Alert and Oriented to: Time, Place, Person Cognitive Function: Good Patient Appearance: Well Groomed Mood: Euthymic Affect: Mood Congruent Patient Behavior: Cooperative Speech Pattern: Appropriate Voice Loudness: Normal Thought Process: Goal Oriented Thought Disorder: Not Present Hallucinations: Denies Suicidal Ideation: Denies Homicidal Ideation: Denies Insight/Judgement: Poor Sleep: Poorly Appetite: Fair Muscle strength/Tone: Normal Gait/Station: Normal Psychiatric Treatment Plan - Problem List (1) Alcohol dependence Current Visit: Yes Qualifiers: Substance use status: in remission Qualified Code(s): F10.21 - Alcohol dependence, in remission (2) Cocaine dependence Current Visit: Yes Qualifiers: Substance use status: uncomplicated Qualified Code(s): F14.20 - Cocaine dependence, uncomplicated (3) Nicotine dependence Current Visit: Yes Qualifiers: Nicotine product type: cigarettes Substance use status: uncomplicated Qualified Code(s): F17.210 - Nicotine dependence, cigarettes, uncomplicated (4) Paranoid schizophrenia Current Visit: Yes (5) PTSD (post-traumatic stress disorder) Current Visit: Yes
[2019-01-08] MEDS: THIAMINE HCL 100 MG TABLET (FP) PO SCH (21:07)
[2019-01-08] MEDS: QUEtiapine FUMARATE 100 MG TABLET (FP) PO SCH (21:08)
[2019-01-08] MEDS: MELATONIN 5 MG TABLETS PO PRN (21:08)
[2019-01-08] MEDS: MONTELUKAST NA 10 MG TABLET PO SCH (21:08)
[2019-01-08] MEDS: MAG HYDROX/AL HYDROX/SIMETH 30 ML UNIT-DOSE CUP PO PRN (21:10)
[2019-01-09] MEDS: CITALOPRAM HYDROBROMIDE 20 MG TABLET (FP) PO SCH (10:25)
[2019-01-09] MEDS: ARIPiprazole 10 MG TABLET PO SCH (10:25)
[2019-01-09] MEDS: BUDESONIDE/FORMETEROL FUMARATE 80/4.5 mcg INHALER IH SCH ×2 (10:26→21:36)
[2019-01-09] MEDS: TOPIRAMATE 25 MG TABLET (FP) PO SCH ×2 (10:26→21:37)
[2019-01-09] MEDS: RANITIDINE HCL 150 MG TABLET (FP) PO SCH ×2 (10:26→21:37)
[2019-01-09] MEDS: PRENATAL VITAMINS W/ FOLIC ACID TABLET (FP) PO SCH (10:26)
[2019-01-09] MEDS: NICOTINE 14 MG/24 HOURS TOPICAL PATCH TD SCH (10:26)
[2019-01-09] MEDS: MELATONIN 5 MG TABLETS PO PRN (21:37)
[2019-01-09] MEDS: MONTELUKAST NA 10 MG TABLET PO SCH (21:37)
[2019-01-09] MEDS: THIAMINE HCL 100 MG TABLET (FP) PO SCH (21:37)
[2019-01-09] MEDS: QUEtiapine FUMARATE 100 MG TABLET (FP) PO SCH (21:37)
[2019-01-09] MEDS: MAG HYDROX/AL HYDROX/SIMETH 30 ML UNIT-DOSE CUP PO PRN (21:39)
[2019-01-10] MEDS: PRENATAL VITAMINS W/ FOLIC ACID TABLET (FP) PO SCH (10:22)
[2019-01-10] MEDS: BUDESONIDE/FORMETEROL FUMARATE 80/4.5 mcg INHALER IH SCH ×2 (10:22→21:16)
[2019-01-10] MEDS: RANITIDINE HCL 150 MG TABLET (FP) PO SCH ×2 (10:22→21:16)
[2019-01-10] MEDS: CITALOPRAM HYDROBROMIDE 20 MG TABLET (FP) PO SCH (10:22)
[2019-01-10] MEDS: NICOTINE 14 MG/24 HOURS TOPICAL PATCH TD SCH (10:22)
[2019-01-10] MEDS: ARIPiprazole 10 MG TABLET PO SCH (10:22)
[2019-01-10] MEDS: TOPIRAMATE 25 MG TABLET (FP) PO SCH ×2 (10:22→21:18)
[2019-01-10] MEDS: MELATONIN 5 MG TABLETS PO PRN (21:16)
[2019-01-10] MEDS: MAG HYDROX/AL HYDROX/SIMETH 30 ML UNIT-DOSE CUP PO PRN (21:16)
[2019-01-10] MEDS: QUEtiapine FUMARATE 100 MG TABLET (FP) PO SCH (21:17)
[2019-01-10] MEDS: MONTELUKAST NA 10 MG TABLET PO SCH (21:17)
[2019-01-10] MEDS: THIAMINE HCL 100 MG TABLET (FP) PO SCH (21:18)
[2019-01-11 07:25] VITALS: BP 123/82; PULSE 104; TEMP 98.2
[2019-01-11] MEDS: PRENATAL VITAMINS W/ FOLIC ACID TABLET (FP) PO SCH (10:11)
[2019-01-11] MEDS: RANITIDINE HCL 150 MG TABLET (FP) PO SCH (10:11)
[2019-01-11] MEDS: TOPIRAMATE 25 MG TABLET (FP) PO SCH (10:11)
[2019-01-11] MEDS: NICOTINE 14 MG/24 HOURS TOPICAL PATCH TD SCH (10:11)
[2019-01-11] MEDS: ARIPiprazole 10 MG TABLET PO SCH (10:11)
[2019-01-11] MEDS: BUDESONIDE/FORMETEROL FUMARATE 80/4.5 mcg INHALER IH SCH (10:11)
[2019-01-11] MEDS: CITALOPRAM HYDROBROMIDE 20 MG TABLET (FP) PO SCH (10:11)
--- NOTE | 2019-01-11 10:47 | PN ---
[facility] Progress Note Note: REHAB DISCHARGE NOTE: PATIENT DISCHARGED TODAY FROM REHAB. PATIENT STATES SHE ACCOMPLISHED ALL REHAB GOALS AND WILL FOLLOW UP OUTPATIENT AT [facility]. PATIENT IS MEDICALLY STABLE AND DENIES SI/HI. 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 PATIENT ENCOURAGED TO CONTINUE WITH GROUP MEETINGS TO PREVENT RELAPSE AND TO FOLLOW UP WITH PCP TO CONTINUE MEDICAL MANAGEMENT. Vital Signs Temperature 98.2 F 01/11/19 07:24 Pulse Rate 104 H 01/11/19 07:24 Respiratory Rate 20 01/11/19 07:24 Blood Pressure 123/82 01/11/19 07:24 O2 Sat by Pulse Oximetry (%) Ambulatory Orders Citalopram Hydrobromide [Celexa -] 20 mg PO DAILY #30 tablet 07/05/16 traZODone HCL [Desyrel -] 100 mg PO HS #30 tablet 07/16/16 Quetiapine Fumarate [Seroquel -] 400 mg PO HS #30 tab 02/11/17 Albuterol Sulfate Inhaler - [Ventolin HFA Inhaler -] 2 inh IH Q4H PRN #1 inhaler 02/12/17 Budesonide/Formeterol Fumarate [SYMBICORT 80/4.5mcg -] 2 puff IH BID #1 inhaler 02/12/17 Montelukast Na [Singulair -] 10 mg PO HS #30 tablet 02/12/17 Ranitidine [Zantac -] 150 mg PO BID #60 tablet 02/12/17 Aripiprazole [Abilify] 10 mg PO DAILY 01/01/19 Topiramate [Topamax -] 25 mg PO BID 01/01/19 Laboratory Tests 01/01/19 01/01/19 01/01/19 13:10 13:10 13:10 WBC 12.4 H RBC 4.07 Hgb 12.4 Hct 37.0 MCV 91.0 MCH 30.5 MCHC 33.5 RDW 14.7 Plt Count 321 MPV 9.5 Sodium 138 Potassium 4.8 Chloride 107 Carbon Dioxide 27 Anion Gap 4 L BUN 11 Creatinine 1.0 Creat Clearance w eGFR 58.45 POC Glucometer Random Glucose 139 H Calcium 9.8 Total Bilirubin 0.4 AST 14 L ALT 22 Alkaline Phosphatase 90 Total Protein 8.1 Albumin 3.5 Urine Color Urine Appearance Urine pH Ur Specific Chauncey Urine Protein Urine Glucose (UA) Urine Ketones Urine Blood Urine Nitrite Urine Bilirubin Urine Urobilinogen Ur Leukocyte Esterase Urine WBC (Auto) Urine RBC (Auto) Urine Casts (Auto) U Epithel Cells (Auto) Urine Bacteria (Auto) RPR Titer Nonreactive 01/01/19 01/06/19 21:37 06:26 WBC RBC Hgb Hct MCV MCH MCHC RDW Plt Count MPV Sodium Potassium Chloride Carbon Dioxide Anion Gap BUN Creatinine Creat Clearance w eGFR POC Glucometer 146 Random Glucose Calcium Total Bilirubin AST ALT Alkaline Phosphatase Total Protein Albumin Urine Color Yellow Urine Appearance Clear Urine pH 6.5 Ur Specific Chauncey 1.013 Urine Protein 2+ H Urine Glucose (UA) Negative Urine Ketones Trace H Urine Blood Negative Urine Nitrite Negative Urine Bilirubin Negative Urine Urobilinogen 0.2 Ur Leukocyte Esterase Negative Urine WBC (Auto) 8 Urine RBC (Auto) 2 Urine Casts (Auto) 3 U Epithel Cells (Auto) 9.6 Urine Bacteria (Auto) 249.0 RPR Titer
== END 2019-01-11 11:18 | disposition home or self-care (01) | DRG 772 ==
LOC: YASAS 11:08 → Y3W 14:53
PROVIDERS: ADMIT Neuromusculoskeletal Medicine & OMM; ATTEND Neuromusculoskeletal Medicine & OMM
PROC: HZ42ZZZ Group Counseling for Substance Abuse Treatment, Cognitive-Behavioral (ICD-10-PCS; principal; 2019-01-01)
DX: F10.20 Alcohol dependence, uncomplicated (principal); F14.20 Cocaine dependence, uncomplicated; F17.210 Nicotine dependence, cigarettes, uncomplicated; F20.0 Paranoid schizophrenia; F43.10 Post-traumatic stress disorder, unspecified; J45.20 Mild intermittent asthma, uncomplicated; J44.9 Chronic obstructive pulmonary disease, unspecified; Z88.0 Allergy status to penicillin; Z91.5 Personal history of self-harm
CPT/HCPCS: 36415; 80053; 81003; 82962; 85027; 86593